=== PATIENT | female | born 1945 | race Two or more races ===

== ENCOUNTER 2017-07-16 14:11 | Emergency (ER) | payer MEDICARE, MEDICAID ==
[~2017-07-16] VITALS: Ht 157.5 cm; Wt 65.8 kg
[2017-07-16 14:11] VITALS: BP 119/59
[2017-07-16] MEDS ORDERED: HYDROcodone-ACET 5/325MG TAB PO ONE (17:45)
== END 2017-07-16 20:03 | disposition home or self-care (01) ==
LOC: ER 14:15
DX: S82.491A Other fracture of shaft of right fibula, initial encounter for closed fracture (principal); S82.431A Displaced oblique fracture of shaft of right fibula, initial encounter for closed fracture; I10 Essential (primary) hypertension; Z87.440 Personal history of urinary (tract) infections; Z86.73 Personal history of transient ischemic attack (TIA), and cerebral infarction without residual deficits; W01.0XXA Fall on same level from slipping, tripping and stumbling without subsequent striking against object, initial encounter; Y93.89 Activity, other specified; Y92.89 Other specified places as the place of occurrence of the external cause; Y99.8 Other external cause status
CPT/HCPCS: 29515; 73610; 73700